=== PATIENT | male | born 1960 | race Hispanic/Latino ===

== ENCOUNTER 2020-01-25 07:46 | Emergency (ER) | payer SELFPAY ==
[2020-01-25 07:57] VITALS: BP 179/92
[2020-01-25 08:22] LABS: Hematocrit 31.8 % (35.5-45.6); Hemoglobin 11.3 gm/dl (11.8-15.2); Mean Corpuscular HGB Conc 35 % (32-34); Mean Corpuscular Volume 97 fl (84-94); Platelet Count 110 K/mm3 (140-440); Red Blood Count 3.28 M/mm3 (3.65-5.03)
[2020-01-25 08:41] LABS: BUN/Creatinine Ratio 20; Blood Urea Nitrogen 18 mg/dL (9-20); Calcium 9.3 mg/dL (8.4-10.2); Hemolysis Index 4
--- NOTE | 2020-01-25 09:24 | Cat Scan Report ---
CT head without contrast INDICATION : Fall, LOC. TECHNIQUE: Axial imaging performed from the skull apex through the skull base without the use of con trast. All CT scans at this location are performed using CT dose reduction for ALARA by means of aut omated exposure control. COMPARISON: None FINDINGS: Parenchyma: No acute intracranial hemorrhage or parenchymal abnormality. Ventricles: Ventricles are normal in size and appear symmetric. Soft tissues: Soft tissues including the orbits appear normal. Bones: No acute osseous abnormality. Sinuses: Sinuses are clear. Several of the mastoid air cells are opacified especially on the left an d to a lesser extent on the right. IMPRESSION: 1. No acute intracranial abnormality. 2. Opacification of several of the mastoid air cells bilaterally can be seen with otomastoiditis. Signer Name: Brennon Prado MD Signed: 01/25/2020 9:20 AM Workstation Name: [id number]
--- NOTE | 2020-01-25 09:53 | Cat Scan Report ---
CT CERVICAL SPINE WITHOUT CONTRAST INDICATION: Fall, neck pain. TECHNIQUE: Axial imaging performed through the cervical spine without the use of contrast. Sagittal and coronal reconstructed images were also reviewed. All CT scans at this location are performed us ing CT dose reduction for ALARA by means of automated exposure control. COMPARISON: None FINDINGS: Alignment: Spinal alignment is normal. Bones: There is no acute osseous abnormality. 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 C4-5 appears to be most affected. There are mild arthritic changes in the facet joints throughout the cerv ical spine but no hypertrophic changes. Moderate to severe multilevel bilateral neural foraminal narr owing is evident. Soft tissues: No acute or significant incidental soft tissue abnormality. 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 The visualized left masto id air cells are opacified. There is partial opacification of the visualized right mastoid air cells. IMPRESSION: Moderate to severe multilevel DJD. No acute injury or malalignment is appreciated. Mastoid air cell disease, likely chronic. Signer Name: Darrin Gonzales Jr, MD Signed: 01/25/2020 9:48 AM Workstation Name: [id number]
[2020-01-25] MEDS ORDERED: KETOROLAC 60 MG/2 ML INJ IM ONE (10:21)
--- NOTE | 2020-01-25 10:26 | Emergency Department Report ---
ED Fall HPI - General Chief Complaint: Fall Stated Complaint: NECK PAIN Time Seen by Provider: 01/25/20 10:12 Source: patient Mode of arrival: Ambulatory - History of Present Illness Initial Comments: Patient is 59 years old male with history of high blood pressure. Patient pres ented to the ER stating that he has a fall 3 days ago when he was unloading his truck and his assurance specialist knocked him down on the ground. Patient is complaining of headache, neck pain and right shoulder pain. Patient denies any other injuries. Patient stated that he did not passed out. Patient currently denying any focal weakness numbness or tingling sensation. No bowel or bladder incontinence. MD Complaint: fall -: days(s) (3) - Related Data Previous Rx's Medication Instructions Recorded Last Taken Type Acetaminophen/Codeine [Tylenol #3] 1 tab PO Q6H PRN #15 tab 02/25/13 11/29/14 Rx Ciprofloxacin HCl [Cipro] 500 mg PO Q12H #20 tab 11/29/14 Unknown Rx Cyclobenzaprine HCl [Flexeril 5mg] 5 mg PO TID #30 tablet 11/29/14 Unknown Rx HYDROcodone/APAP 5-325 [Lolita 1 each PO Q6HR PRN #20 tablet 11/29/14 Unknown Rx 5/325] HYDROcodone/APAP 5-325 [Lolita 1 - 2 each PO Q6HR PRN #14 tablet 02/14/16 Unknown Rx 5/325] Ibuprofen [Motrin 800 MG tab] 800 mg PO Q8HR PRN #20 tablet 02/14/16 Unknown Rx Sulfamethoxazole/Trimethoprim 1 each PO BID #20 tablet 02/14/16 Unknown Rx [Bactrim DS TAB] Allergies Allergy/AdvReac Type Severity Reaction Status Date / Time Penicillins Allergy Hives Verified 02/24/13 23:11 ED Review of Systems ROS: Stated complaint: NECK PAIN Other details as noted in HPI Comment: All other systems reviewed and negative Constitutional: denies: chills, fever Respiratory: denies: cough, shortness of breath Cardiovascular: denies: chest pain, palpitations Gastrointestinal: denies: abdominal pain, nausea, vomiting Neurological: headache. denies: weakness, numbness, paresthesias, confusion, abnormal gait ED Past Medical Hx - Past Medical History Previous Medical History?: Yes Hx GERD: Yes Additional medical history: delayed release acid reflux - Surgical History Additional Surgical History: Rt foot for hammer toe and heel spur-2000 - Social History Smoking Status: Never Smoker Substance Use Type: None - Medications Home Medications: Home Medications Medication Instructions Recorded Confirmed Last Taken Type Acetaminophen/Codeine [Tylenol #3] 1 tab PO Q6H PRN #15 tab 02/25/13 11/29/14 11/29/14 Rx Ciprofloxacin HCl [Cipro] 500 mg PO Q12H #20 tab 11/29/14 Unknown Rx Cyclobenzaprine HCl [Flexeril 5mg] 5 mg PO TID #30 tablet 11/29/14 Unknown Rx HYDROcodone/APAP 5-325 [Lolita 1 each PO Q6HR PRN #20 tablet 11/29/14 Unknown Rx 5/325] HYDROcodone/APAP 5-325 [Lolita 1 - 2 each PO Q6HR PRN #14 tablet 02/14/16 Unknown Rx 5/325] Ibuprofen [Motrin 800 MG tab] 800 mg PO Q8HR PRN #20 tablet 02/14/16 Unknown Rx Sulfamethoxazole/Trimethoprim 1 each PO BID #20 tablet 02/14/16 Unknown Rx [Bactrim DS TAB] ED Physical Exam - General Limitations: No Limitations General appearance: alert, in no apparent distress - Head Head exam: Present: atraumatic, normocephalic, normal inspection - Eye Eye exam: Present: normal appearance, PERRL - ENT ENT exam: Present: normal exam, normal orophraynx, mucous membranes moist - Neck Neck exam: Present: normal inspection, other (Muscle spasm). Absent: tenderness, meningismus, full ROM (Decreased range of motion), lymphadenopathy, thyromegaly - Respiratory Respiratory exam: Present: normal lung sounds bilaterally. Absent: chest wall tenderness - Cardiovascular Cardiovascular Exam: Present: regular rate, normal rhythm, normal heart sounds - GI/Abdominal GI/Abdominal exam: Present: soft, normal bowel sounds. Absent: distended, tenderness, guarding, rebound, rigid, organomegaly, mass, bruit, pulsatile mass, hernia - Extremities Exam Extremities exam: Present: normal inspection, full ROM, normal capillary refill. Absent: tenderness, pedal edema, joint swelling, calf tenderness - Back Exam Back exam: Present: normal inspection, full ROM. Absent: CVA tenderness (R), CVA tenderness (L) - Neurological Exam Neurological exam: Present: alert, oriented X3, CN II-XII intact, reflexes no rmal - Psychiatric Psychiatric exam: Present: normal mood - Skin Skin exam: Present: warm, intact, normal color ED Course Vital Signs 01/25/20 01/25/20 07:51 10:25 Temperature 97.7 F Pulse Rate 107 H Respiratory 18 18 Rate Blood Pressure 179/92 O2 Sat by Pulse 97 Oximetry ED Medical Decision Making - Lab Data Result diagrams: 01/25/20 08:05 01/25/20 08:01 - Radiology Data Radiology results: report reviewed - Medical Decision Making Patient is 59 years old male with history of high blood pressure. Patient pre sented to the ER stating that he has a fall 3 days ago when he was unloading his truck and his assurance specialist knocked him down on the ground. Patient is complaining of headache, neck pain and right shoulder pain. Patient denies any other injuries. Patient stated that he did not passed out. Patient currently denying any focal weakness numbness or tingling sensation. No bowel or bladder incontinence. Patient received Toradol 60 mg IM in the emergency room and he stated that it helped a lot with his pain. CT brain and CT cervical spine is unremarkable except for chronic mastoiditis for which patient advised to follow-up with his primary care physician for further work-up. Right shoulder x-ray is negative for acute finding. Patient given prescription for Naprosyn, tramadol and Zofran and advised to follow-up with his primary care physician in the next 2 to 3 days and to return to the ER if he develop any new symptoms. Critical care attestation.: If time is entered above; I have spent that time in minutes in the direct care of this critically ill patient, excluding procedure time. ED Disposition Clinical Impression: Fall, Head injury, Acute neck pain, Contusion of right shoulder Disposition: -01 TO HOME OR SELFCARE Is pt being admited?: No Condition: Stable Instructions: Minor Head Injury in Children (ED), Contusion in Adults (ED) Referrals: PRIMARY CARE, [Primary Care Provider] - 3-5 Days
--- NOTE | 2020-01-25 11:08 | XRay Report ---
. RIGHT SHOULDER 3 VIEWS INDICATION: Right shoulder pain status post injury.. COMPARISON: None. IMPRESSION: No acute osseous or soft tissue abnormality. Moderate osteoarthritic changes are note d at the acromioclavicular joint. Signer Name: Darrin Gonzales Jr, MD Signed: 01/25/2020 11:04 AM Workstation Name: [id number]
== END 2020-01-25 11:41 | disposition home or self-care (01) ==
LOC: ED 07:46
DX: S40.011A Contusion of right shoulder, initial encounter (principal); S09.90XA Unspecified injury of head, initial encounter; M54.2 Cervicalgia; K21.9 Gastro-esophageal reflux disease without esophagitis; I10 Essential (primary) hypertension; Z79.899 Other long term (current) drug therapy; Z88.0 Allergy status to penicillin; Z98.890 Other specified postprocedural states; W18.30XA Fall on same level, unspecified, initial encounter; Y93.89 Activity, other specified; Y92.89 Other specified places as the place of occurrence of the external cause; Y99.8 Other external cause status
CPT/HCPCS: 36415; 70450; 72125; 73030; 80048; 85027; 96372; 99284; J1885